=== PATIENT | male | born 1965 | race Caucasian/White ===

== ENCOUNTER 2018-12-26 08:57 | Emergency (ER) | payer BC, OTHER ==
[~2018-12-26] VITALS: Ht 182.9 cm; Wt 109.7 kg
[2018-12-26 09:02] VITALS: BP 150/86; PULSE 86; RESP 18; Ht 182.9 cm; Wt 109.7 kg
[2018-12-26] MEDS ORDERED: BACITRACIN 0.5%/ZINC 28.35 GM OINT TOP ONE (10:30)
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
== END 2018-12-26 10:59 | disposition home or self-care (01) ==
LOC: FTE 08:57
DX: S82.432A Displaced oblique fracture of shaft of left fibula, initial encounter for closed fracture (principal); S80.811A Abrasion, right lower leg, initial encounter; S80.812A Abrasion, left lower leg, initial encounter; S60.511A Abrasion of right hand, initial encounter; S60.512A Abrasion of left hand, initial encounter; V89.3XXA Person injured in unspecified nonmotor-vehicle accident, traffic, initial encounter
CPT/HCPCS: 73610; Z7502; Z7610